=== PATIENT | female | born 1950 | race Caucasian/White ===

== ENCOUNTER → 2019-04-02 | Outpatient (CLI) | payer MEDICARE, OTHER ==
--- NOTE | 2019-04-02 19:38 | ECGEPIP ---
[facility] Test Date: 2019-04-02 Pat Name: SHANIQUA MARCELINO Department: Room: - Gender: Female Scrap Wheeler: VICTOR HUGO : 1950 Requested By: Ziggy Rodriguez @ [facility] Order Number: [id number] Reading MD: Dieudonne Mcmillan Measurements Intervals [place] Rate: 72 P: 29 [place]: 202 QRS: QRSD: 85 T: 66 QT: 362 QTc: 398 Interpretive Statements SINUS RHYTHM No prior tracing in the system Electronically Signed on 04-02-2019 19:38:37 EDT by Dieudonne Mcmillan
== END ==
LOC: M EKG 15:14
PROVIDERS: ATTEND Orthopaedic Surgery
DX: Z01.812 Encounter for preprocedural laboratory examination (principal); I51.9 Heart disease, unspecified

== ENCOUNTER 2020-03-04 10:47 | Emergency (ER) | payer MEDICARE, OTHER ==
[~2020-03-04] VITALS: Ht 157.5 cm; Wt 89.5 kg
[2020-03-04] MEDS ORDERED: MULTCAP PO (10:56)
[2020-03-04] MEDS ORDERED: ASPI81TA85 PO (10:56)
[2020-03-04] MEDS ORDERED: LOTR52CA PO (10:56)
[2020-03-04] MEDS ORDERED: FISH1000 PO (10:56)
[2020-03-04] MEDS ORDERED: LIPI20TA PO (10:56)
[2020-03-04] MEDS ORDERED: CALC500C14 PO (10:56)
[2020-03-04 11:42] LABS: BASO % 0.6 % (0.0-1.0); EOS # 0.1 10^3/uL (0.0-0.5); EOS % 1.7 % (0.0-3.0); HEMATOCRIT 48.9 % (36.0-47.0); LYMPH # 2.2 10^3/uL (1.5-5.0); LYMPH % 30.1 % (24.0-44.0); MEAN CORPUSCULAR HEMOGLOBIN 30.7 pg (27.0-33.0); MEAN CORPUSCULAR HGB CONC 32.7 g/dl (32.0-36.5); MEAN CORPUSCULAR VOLUME 93.9 fl (80.0-96.0); MONO # 0.7 10^3/uL (0.0-0.8); NEUTROPHILS # 4.1 10^3/uL (1.5-8.5); NEUTROPHILS % 57.2 % (36.0-66.0); PLATELET COUNT, AUTOMATED 244 10^3/uL (150-450); RED BLOOD COUNT 5.21 10^6/uL (4.00-5.40); WHITE BLOOD COUNT 7.2 10^3/uL (4.0-10.0)
[2020-03-04 12:26] LABS: ALBUMIN 4.1 GM/DL (3.2-5.2); ALT/SGPT 29 U/L (12-78); BILIRUBIN,DIRECT 0.2 MG/DL (0.0-0.2); BILIRUBIN,TOTAL 0.5 MG/DL (0.2-1.0); CPK CREATINE PHOSPHOKINASE 97 U/L (26-192); MB/CK RELATIVE INDEX 1.03 (< OR =4); TOTAL PROTEIN 7.7 GM/DL (6.4-8.2); TROPONIN I < 0.02 NG/ML (< 0.10)
[2020-03-04] MEDS ORDERED: METO1TAB87 PO (13:24)
[2020-03-04] MEDS ORDERED: ELIQ5TAB PO ×2 (13:24→13:32)
[2020-03-04 13:30] VITALS: BP 147/79
--- NOTE | 2020-03-04 14:46 | REP ---
CHEST, SINGLE VIEW: There is no evidence of acute infiltrate. No pleural effusion is seen. The heart is normal in size. The mediastinal silhouette is unremarkable. The visualized osseous structures are intact. There is mild calcification of the thoracic aorta. IMPRESSION: No acute pulmonary disease. Electronically Signed by Ed Dominguez MD 03/04/2020 02:56 P
--- NOTE | 2020-03-04 18:49 | ECGEPIP ---
[facility] - ED Test Date: 2020-03-04 Pat Name: SHANIQUA MACRELINO Department: Room: - Gender: Female Development Coach: mesha : 1950 Requested By: Jie Castellanos Order Number: [id number] Reading MD: Wade Lyn Measurements Intervals [place] Rate: 73 P: 31 [place]: 197 QRS: -15 QRSD: 84 T: 61 QT: 336 QTc: 371 Interpretive Statements SINUS RHYTHM POOR R WAVE PROGRESSION MODERATE VOLTAGE CRITERIA FOR LVH, CONSIDER NORMAL VARIANT NSTTW ABNORMALITIES SIMILAR TO 04/02/19 Electronically Signed on 03-04-2020 18:49:05 EDT by Wade Lyn
== END 2020-03-04 13:49 | disposition home or self-care (01) ==
LOC: M ED 10:47
DX: I48.0 Paroxysmal atrial fibrillation (principal); I10 Essential (primary) hypertension; R73.03 Prediabetes; E78.5 Hyperlipidemia, unspecified; Z79.899 Other long term (current) drug therapy; Z79.01 Long term (current) use of anticoagulants; Z88.8 Allergy status to other drugs, medicaments and biological substances

== ENCOUNTER 2023-04-13 06:04 | Day surgery (SDC) | payer MEDICARE, OTHER ==
[~2023-04-13] VITALS: Ht 157.5 cm; Wt 97.9 kg
[~2023-04-13 06:04] MED LIST: ASPI81TA86 PO; CALC500C14 PO; ELIQ5TAB PO; FISH1000 PO; FLEC100T27 PO; LIPI20TA PO; LOTR52CA PO; METO1TAB87 PO; MULTCAP PO; VITMTA PO
[2023-04-13] MEDS ORDERED: LIDOCAINE 2% 100MG/5ML SDV (FOR ANES.) As Ordered ONE (07:02)
[2023-04-13] MEDS ORDERED: propofoL 200 MG/20 ML VIAL As Ordered ONE (07:02)
[2023-04-13] MEDS ORDERED: ONDANSETRON 4MG 2ML VIAL IV PRN (07:10)
[2023-04-13 08:16] VITALS: BP 102/66; TEMP 98.2; O2SAT 95
== END 2023-04-13 08:18 | disposition home or self-care (01) ==
LOC: M SDC 06:04
PROVIDERS: ATTEND Internal Medicine Cardiovascular Disease
DX: I48.91 Unspecified atrial fibrillation (principal); I48.92 Unspecified atrial flutter; E11.9 Type 2 diabetes mellitus without complications; I11.9 Hypertensive heart disease without heart failure; E78.00 Pure hypercholesterolemia, unspecified; M19.90 Unspecified osteoarthritis, unspecified site; I27.20 Pulmonary hypertension, unspecified; Z96.653 Presence of artificial knee joint, bilateral; Z88.8 Allergy status to other drugs, medicaments and biological substances; Z79.899 Other long term (current) drug therapy; Z79.01 Long term (current) use of anticoagulants